=== PATIENT | male | born 1940 | race Caucasian/White ===

== ENCOUNTER 2017-12-18 01:04 | Inpatient (IN) | payer OTHER, MEDICARE ==
[~2017-12-18] VITALS: Ht 177.8 cm; Wt 115.2 kg
[~2017-12-18 01:04] MED LIST: ASPIRIN EC81 M1 PO; CARDURA2 M1 PO; CO Q-10200 MG PO; CRANBERRY450 M3 PO; CRESTOR10 M1 PO; FINASTERIDE5 M1 PO; FISH OIL 1,0001 EAC5 PO; POTASSIUM CHLO10 ME5 PO; PROSTATE HEALT1 EACH PO; REFRESH TEARS15 ML OU; RESVERATROL 101 EACH PO; VALSARTAN-HCTZ1 EACH PO
--- NOTE | 2017-12-18 11:05 | Admission Core Measures ---
Acute Coronary Syndrome (CM) ACS Core Measures Acute Coronary Syndrome Diagnosis No Congestive Heart Failure (NEW) CHF Core Measures Congestive Heart Failure Diagnosis No Cerebrovascular Accident (NEW) CVA Core Measures CVA/TIA Diagnosis No Venous Thromboembolism VTE Core Tatiana (View Protocol) VTE Risk Factors Surgery No Mechanical VTE Prophylaxis d/t N/A MechProphylax Ordered No VTE Pharm Prophylaxis d/t NA PharmProphylax ordered Problem List As ranked by this Provider includes Assessment & Plan 1. Unilateral primary osteoarthritis, right hip HOME MEDS Home Med List Aspirin (Ecotrin*) 81 MG TABLET.DR 2 TAB PO QPM HEART/BLOOD (Reported) Carboxymethylcellulose Sodium (Refresh Tears) (Unknown Strength) DROPS ( Unknown Dose) OU PRN BOTH EYES (Reported) Cranberry Fruit Concentrate (Cranberry) (Unknown Strength) CAPSULE (Unknown Dose) PO DAILY SUPPLEMENT (Reported) Doxazosin Mesylate (Cardura) 2 MG TABLET 1 TAB PO DAILY BPH (Reported) Finasteride 5 MG TABLET 1 TAB PO DAILY BPH (Reported) [place]-3S/Dha/Epa/Fish Oil (Fish Oil 1,000 MG Softgel) (Unknown Strength) CAPSULE (Unknown Dose) PO DAILY SUPPLEMENT (Reported) Potassium Chloride 10 MEQ TAB.ER.PRT 1 TAB PO DAILY SUPPLEMENT (Reported) Resveratrol/Grape Skin Extract (Resveratrol 100 MG Tablet) (Unknown Strength) TABLET (Unknown Dose) PO DAILY SUPPLEMENT (Reported) Rosuvastatin Calcium (Crestor) 10 MG TABLET 1 TAB PO DAILY CHOLESTEROL ( Reported) Saw/Vit E/Sod Ann/Lyc/Beta/Pyg (Prostate Health Caplet) (Unknown Strength) TABLET (Unknown Dose) PO DAILY SUPPLEMENT (Reported) Ubidecarenone (Co Q-10) (Unknown Strength) CAPSULE (Unknown Dose) PO DAILY SUPPLEMENT (Reported) Valsartan/Hydrochlorothiazide (Valsartan-Hctz 80-12.5 MG Tab) 80 MG-12.5 MG TABLET 1 TAB PO DAILY BP (Reported)
[2017-12-18] MEDS ORDERED: COLACE100 M1 PO (11:11)
[2017-12-18] MEDS ORDERED: PRILOSEC OTC20 M1 PO (11:11)
[2017-12-18] MEDS ORDERED: DILAUDID2 M1 PO (11:11)
[2017-12-18] MEDS ORDERED: MIRALAX17 G1 PO (11:11)
[2017-12-18] MEDS ORDERED: INDOMETHACIN25 M1 PO (11:11)
[2017-12-18] MEDS ORDERED: ASPIRIN EC81 M1 PO (11:11)
--- NOTE | 2017-12-18 11:15 | Patient Discharge Instructions ---
Discharge Instructions General Discharge Information You were seen/treated for: Right hip pain related to unilateral primary osteoarthritis You had these procedures: Right total hip replacement Watch for these problems: Increasing pain despite the use of pain medication Increasing redness, warmth or swelling Drainage of any type from incision Inability to bear weight on operative leg Persistent nausea and vomiting Fever greater than 101.5 degrees Do not soak the wound: Yes No bath, but you may shower: Yes Other wound care: Please keep wound clean and dry. No ointments or lotions of any type on or near incision at any time. No exceptions. Your dressing will be changed by your nurse on the second day after your surgery. Daily dry dressing changes are recommended each day thereafter. Do not soak your wound in a bath at any time until otherwise indicated by your surgeon. You may shower, please dry wound immediately after shower with a clean towel. Special Instructions: Aspirin: You are taking this medication to help prevent blood clot formation. Please take with food to protect your stomach lining. Please take as directed. Constipation: Pain medication can cause constipation. Dr. Baptiste has recommended that you take Colace and miralax each day. You may discontinue this medication if you develop loose stool or diarrhea. If you wish to continue this medication, it is available over the counter. If you are unable to move your bowels after several days, if you are unable to pass gas and are developing bloating, nausea, or vomiting as a result, please contact your doctor. Diet Continue normal diet: Yes Recommended Diet: Regular Activity Full Activity/No Limits: No Activity Self Limited: Yes Pounds, do NOT lift more than: 10 Acute Coronary Syndrome Inclusion Criteria At DC or during hospital stay patient has or had the following: ACS DIAGNOSIS No Discharge Core Measures Meds if any: Prescribed or Continued at Discharge Meds if any: NOT Prescribed or Continued at Discharge Congestive Heart Failure Inclusion Criteria At DC or during hospital stay patient has or had the following: CHF DIAGNOSIS No Discharge Core Measures Meds if any: Prescribed or Continued at Discharge Meds if any: NOT Prescribed or Continued at Discharge Cerebrovascular accident Inclusion Criteria At DC or during hospital stay patient has or had the following: CVA/TIA Diagnosis No Discharge Core Measures Meds if any: Prescribed or Continued at Discharge Meds if any: NOT Prescribed or Continued at Discharge Venous thromboembolism Inclusion Criteria VTE Diagnosis No VTE Type NONE VTE Confirmed by (Test) NONE Discharge Core Measures - Per Current guidelines, there needs to be overlap - treatment for the first 5 days of Warfarin therapy. - If discharged on Warfarin prior to 5 days of - overlap therapy, the patient will need to be - assessed for post discharge needs including - *Post discharge parental anticoagulation - *Warfarin and/or parental anticoagulation education - *Follow up date to check INR post discharge At least 5 days overlap therapy as Inpatient No Meds if any: Prescribed or Continued at Discharge Note: Overlap Therapy is Warfarin and Anticoagulant Meds if any: NOT Prescribed or Continued at Discharge
--- NOTE | 2017-12-18 11:17 | Surgical Discharge Summary ---
Visit Information Visit Dates Admission Date: 12/18/17 History of Present Illness Chief Complaint: Right hip pain related to unilateral primary osteoarthritis Surgical History Pertinent Surgical History: non-contributory Review of Systems: See H&P Hospital Course Course Attending Physician: Ventura Baptiste MD Primary Care Physician: Harish Rao MD Hospital Course: Patient was admitted to the hospital for an elective total joint replacement. The procedure was tolerated well and patient was transferred to a general surgical floor. Diet was advanced and tolerated, and the patient voided spontaneously. The patient was evaluated and treated by physical therapy. At the time of hospital discharge, the vital signs were stable, neurovascular status was intact, and pain was controlled with the use of oral pain medications. Allergies: Coded Allergies: No Known Allergies (10/17/16) Disposition Summary Disposition Principal Diagnosis: Unilateral primary osteoarthritis right hip Additional Diagnosis: None Discharge Disposition: home health services Discharge Instructions General Discharge Information Code Status: Full Code Patient's Diet: Regular, advance as tolerated Patient's Activity: WBAT Follow-Up Instructions/Appts: Follow up with Dr. Baptiste in 6 weeks from date of surgery. Please call his office to arrange and/or confirm this appointment. Medications at Discharge Discharge Medications: Stop taking the following medications: Aspirin (Ecotrin*) 81 MG TABLET.DR BROWN Every night Continue taking these medications: Finasteride (Finasteride) 5 MG TABLET 1 Tablet ORAL DAILY Doxazosin Mesylate (Cardura) 2 MG TABLET 1 Tablet ORAL DAILY Rosuvastatin Calcium (Crestor) 10 MG TABLET 1 Tablet ORAL DAILY Potassium Chloride (Potassium Chloride) 10 MEQ TAB.ER.PRT 1 Tablet ORAL DAILY Valsartan/Hydrochlorothiazide (Valsartan-Hctz 80-12.5 MG Tab) 80 MG-12.5 MG TABLET 1 Tablet ORAL DAILY Saw/Vit E/Sod Ann/Lyc/Beta/Pyg (Prostate Health Caplet) (Unknown Strength) TABLET Unknown Dose ORAL DAILY Cranberry Fruit Concentrate (Cranberry) (Unknown Strength) CAPSULE Unknown Dose ORAL DAILY [place]-3S/Dha/Epa/Fish Oil (Fish Oil 1,000 MG Softgel) (Unknown Strength) CAPSULE Unknown Dose ORAL DAILY Resveratrol/Grape Skin Extract (Resveratrol 100 MG Tablet) (Unknown Strength) TABLET Unknown Dose ORAL DAILY Ubidecarenone (Co Q-10) (Unknown Strength) CAPSULE Unknown Dose ORAL DAILY Carboxymethylcellulose Sodium (Refresh Tears) (Unknown Strength) DROPS Unknown Dose Both Eyes as needed for BOTH EYES Start taking the following new medications: Hydromorphone HCl (Dilaudid) 2 MG TABLET 1-2 Tablet ORAL EVERY 4-6 HOURS NEEDED as needed for PAIN Qty = 36 No Refills Docusate Sodium (Colace) 100 MG CAPSULE 1 Capsule ORAL TWICE DAILY Qty = 14 No Refills Instructions: DISCONTINUE USE IF YOU DEVELOP LOOSE STOOL OR DIARRHEA Polyethylene Glycol 3350 (Miralax) 17 GRAM POWD.PACK 1 Packet ORAL DAILY Qty = 7 No Refills Instructions: dissolve in water, DISCONTINUE USE IF YOU DEVELOP LOOSE STOOL OR DIARRHEA Indomethacin (Indomethacin) 25 MG CAPSULE 1 Capsule ORAL THREE TIMES DAILY Qty = 30 No Refills Instructions: with food Aspirin (Ecotrin*) 81 MG TABLET.DR 1 Tablet ORAL TWICE DAILY Qty = 60 No Refills Omeprazole Magnesium (Prilosec Otc) 20 MG TABLET.DR 1 Tablet ORAL DAILY Qty = 30 No Refills
--- NOTE | 2017-12-18 12:45 | RADIOLOGY REPORT ---
EXAMINATION: XR HIP, RIGHT CLINICAL INFORMATION: Status post right total hip replacement COMPARISON: None TECHNIQUE: AP and crosstable lateral views of the right hip. FINDINGS: Prosthetic components of the right total hip arthroplasty are appropriately aligned. No periprosthetic fracture. Gas from recent surgery is present in the surrounding soft tissues. IMPRESSION: Normal postoperative appearance of the right total hip prosthesis.
--- NOTE | 2017-12-18 14:47 | Operative Report ---
Operative/Inv Procedure Report Surgery Date: 12/18/17 Name of Procedure: Right total hip replacement Pre-Operative Diagnosis: Primary right hip DJD Post-Operative Diagnosis: Same Estimated Blood Loss: 350 Surgeon/Target Network Analyst: Emile FIGUEROA,Ventura Porter Anesthesia: block Operative/Procedure Note Note: Description of Procedure: The patient was taken to the operating room and positively identified. After induction of spinal anesthesia and administration of appropriate pre-operative antibiotics, the patient was positioned supine on the operating room table and all bony prominences were well padded. After performing a surgical timeout, the right lower extremity was prepped and draped in the usual sterile fashion. A direct anterior approach was made to the right hip. The incision was carried sharply through superficial soft tissues to the level of the fascia. Meticulous hemostasis was maintained with Bovie electocautery. The fascia over the tensor fascia aura muscle was opened sharply and the interval between the TFL and the sartorius was entered bluntly taking care to stay lateral to the lateral femoral cutaneous nerve. Retractors were placed around the femoral neck and the pericapsular fat was identified. The ascending branches of the lateral femoral circumflex vessels were identified and carefully coagulated. The pericapsular fat and anterior capsule were then resected. A napkin ring osteotomy was performed and the femoral head was removed without difficulty. Attention was then turned to the acetabulum. After appropriate placement of retractors, the acetabulum was exposed. Soft tissue was cleaned from the acetabular margin and notch. Overhanging osteophytes were removed and the teardrop was exposed. The acetabulum was then sequentially reamed to accept a 60 mm Janneth Tritanium hemispherical solid shell. This was impacted into place in the appropriate position and fitted with a 36 mm Trident X3 zero degree polyethylene insert. Attention was then turned to the femur. After performing the appropriate ligament releases, the proximal femur was exposed. It was then sequentially broached to accept a size 7 Janneth Accolade II stem. This was trialed for leg length and stability. The trial component was removed and the final component was impacted into place. The trunnion was carefully cleaned and fit with a 36 mm, +0 Biolox delta ceramic femoral head. The hip was reduced and put through a full range of motion and found to be stable. The articular space was then irrigated with sterile saline. The periarticular soft tissues were infilitrated with Marcaine. The fascial layer was closed with interrupted #1 vicryl suture and the skin was re-approximated with interrupted 2 -0 vicryl. The skin was closed with a running 3-0 V-Lock suture. Steri-strips and a sterile dressing were applied. The patient was awakened and taken to the recovery room in satisfactory condition.
[2017-12-18 14:48] VITALS: BP 144/61
--- NOTE | 2017-12-18 15:05 | PN- Orthopedic ---
Subjective Subjective: No complaints presently. Has ambulated with PT and has been cleared for home discharge. States he still feels some residual effects from spinal. Denies chest pain, shortness of breath and difficulty breathing. Denies nausea and vomitting. Has tolerated po. Has yet to void. Is interested in discharge to home today. Objective Vital Signs and I&Os Vital Signs Date Time Temp Pulse Resp B/P B/P Pulse O2 O2 Flow FiO2 Mean Ox Delivery Rate 12/18 1448 97.2 56 20 144/61 98 Room Air Intake & Output 12/18 1600 12/18 0800 12/18 0000 12/17 1600 12/17 0800 12/17 0000 Intake Total Output Total Balance Patient 254 lb Weight Weight Reported by Patient Measurement Method Physical Exam: General: Alert and oriented x3, no acute distress Cardiac: RRR, s1s2 Pulm: CTA bilaterally, non-labored respiratory effort Extremities: Moves all extremities, distal sensation intact. Skin warm and well perfused. DP pulses palpable bialterally. Bilateral calves soft and non- tender. Surgical site: Right thigh. Dressing dry and intact. Thigh compartment soft. Assessment/Plan Assessment/Plan This is a 77 year old male, POD 0, s/p R THR. PMH signifcant for: HTN, BPH -Pt must void prior to discharge to home -Continue diet as tolerated -Abx: Additional dose to be given if still in house -Continue current pain regimen -ASA 81 bid to begin tonight for dvt ppx -Indocin 25 to be taken tid for prevention of HO x 10 days -Activity: OOB, wbat, has cleared pt for home -Anticipate dc to home today Will discuss poc with Dr. Baptiste Core Measures Venous Thromboembolism VTE Risk Factors Surgery No Mechanical VTE Prophylaxis d/t N/A MechProphylax Ordered No VTE Pharm Prophylaxis d/t NA PharmProphylax ordered
[2017-12-18] MEDS ORDERED: MS CONTIN15 M3 PO (15:15)
== END 2017-12-18 16:58 | disposition home health service (06) | DRG 470 ==
LOC: SDA 01:04 → ENRESERV 13:06 → ENTRNSPT 13:17 → EDTRNSPT 13:47 → EDTRNSPTSTS 13:47 → CMPTRNSPT 13:56 → 2NA 13:57 → ENPENDDIS 16:12 → ENTRNSPT 16:27 → 2NA 16:58 → CMPTRNSPT 17:19
PROC: 0SR904Z Replacement of Right Hip Joint with Ceramic on Polyethylene Synthetic Substitute, Open Approach (ICD-10-PCS; principal; 2017-12-18)
DX: M16.11 Unilateral primary osteoarthritis, right hip (principal); I50.9 Heart failure, unspecified; D64.9 Anemia, unspecified; I11.0 Hypertensive heart disease with heart failure; E78.5 Hyperlipidemia, unspecified; Z96.653 Presence of artificial knee joint, bilateral; N40.0 Benign prostatic hyperplasia without lower urinary tract symptoms; G47.33 Obstructive sleep apnea (adult) (pediatric); I49.3 Ventricular premature depolarization; Z95.2 Presence of prosthetic heart valve; Z79.82 Long term (current) use of aspirin; I25.10 Atherosclerotic heart disease of native coronary artery without angina pectoris
CPT/HCPCS: 2NASP; 73502-RT; 97116-GO; 97161-GP; J0131; J0690; J0735; J2405; J2550; J3490; J7042